=== PATIENT | male | born 1965 | race Caucasian/White ===

== ENCOUNTER → 2021-10-14 | Outpatient (CLI) | payer BC ==
--- NOTE | 2021-10-15 10:21 | RAD ---
XR FOOT_LEFT 3 VIEWS 10/14/2021 4:23 PM INDICATION: First digit pain COMPARISON: None available. TECHNIQUE: 3 views of the left foot are provided. FINDINGS/ IMPRESSION: There is a comminuted fracture of the distal phalanx of the first digit without intra-articular exten radha of the interphalangeal joint. There is diffuse soft tissue swelling. No radiopaque foreign densi ty. Bone mineralization is within normal limits. Electronically signed by: Corinna Manrique MD (10/15/2021 10:19 AM) [id number]
== END ==
LOC: RAD 16:14
PROVIDERS: ATTEND Nurse Practitioner
DX: S92.912A Unspecified fracture of left toe(s), initial encounter for closed fracture (principal); M79.89 Other specified soft tissue disorders; X58.XXXA Exposure to other specified factors, initial encounter; Y93.89 Activity, other specified; Y92.89 Other specified places as the place of occurrence of the external cause; Y99.8 Other external cause status
CPT/HCPCS: 73630

== ENCOUNTER → 2021-11-12 | Outpatient (CLI) | payer BC ==
--- NOTE | 2021-11-12 17:09 | RAD ---
EXAM: XR FOOT_LEFT 3 VIEWS 11/12/2021 3:12 PM CLINICAL INDICATION: PICC toe fracture COMPARISON: Left foot radiograph 10/14/2021 TECHNIQUE: 3 views of the left foot FINDINGS: Comminuted fracture of the great toe distal phalanx is unchanged in alignment. Fracture li darshan are less distinct. No intra-articular extension. There is no new fracture. Joint spaces are maint ained. No focal soft tissue abnormality. IMPRESSION: Healing comminuted fracture of the great toe distal phalanx. Electronically signed by: Chrissy Mcallister MD (11/12/2021 5:07 PM) [facility]
== END ==
LOC: RAD 14:51
PROVIDERS: ATTEND Podiatrist
DX: S92.422D Displaced fracture of distal phalanx of left great toe, subsequent encounter for fracture with routine healing (principal); X58.XXXD Exposure to other specified factors, subsequent encounter
CPT/HCPCS: 73630